=== PATIENT | female | born 1965 | race Caucasian/White ===

== ENCOUNTER 2020-09-02 09:48 | Emergency (ER) | payer BC, SELFPAY ==
[~2020-09-02] VITALS: Ht 154.9 cm; Wt 121.6 kg
[~2020-09-02 09:48] MED LIST: BG MC; CIPRO500 MG PO; GLU10 PO; GLU850 PO; LEVEMIR100 U/M1 SQ; PREDNISONE20 MG
[2020-09-02 09:49] VITALS: BP 194/107; Ht 154.9 cm; Wt 121.6 kg
== END 2020-09-02 10:33 | disposition home or self-care (01) ==
LOC: ED 09:48
DX: U07.1 COVID-19 (principal); J12.89 Other viral pneumonia; Z90.710 Acquired absence of both cervix and uterus
CPT/HCPCS: U0003

== ENCOUNTER 2020-09-06 13:45 | Emergency (ER) | payer BC, SELFPAY ==
[~2020-09-06] VITALS: Ht 154.9 cm; Wt 117.9 kg
[2020-09-06 13:46] VITALS: Ht 154.9 cm; Wt 117.9 kg
[2020-09-06 14:05] VITALS: BP 149/104
== END 2020-09-06 14:41 | disposition home or self-care (01) ==
LOC: ED 13:45
DX: U07.1 COVID-19 (principal); E66.9 Obesity, unspecified; Z68.42 Body mass index [BMI] 45.0-49.9, adult; Z76.0 Encounter for issue of repeat prescription; Z90.710 Acquired absence of both cervix and uterus

== ENCOUNTER 2020-09-18 13:08 | Emergency (ER) | payer BC ==
[~2020-09-18] VITALS: Ht 154.9 cm; Wt 117.9 kg
[2020-09-18 13:10] VITALS: BP 160/96; Ht 154.9 cm; Wt 117.9 kg
== END 2020-09-18 13:44 | disposition home or self-care (01) ==
LOC: ED 13:08
DX: R05 Cough (principal); Z90.89 Acquired absence of other organs; Z90.49 Acquired absence of other specified parts of digestive tract; Z90.710 Acquired absence of both cervix and uterus